=== PATIENT | female | born 1980 | race African-American/Black ===

== ENCOUNTER 2017-06-23 06:12 | Emergency (ER) | payer OTHER ==
[~2017-06-23] VITALS: Ht 154.9 cm; Wt 79.0 kg
[2017-06-23 07:45] VITALS: BP 130/80
== END 2017-06-23 07:48 | disposition home or self-care (01) ==
LOC: EMS 06:19
DX: J32.9 Chronic sinusitis, unspecified (principal); J02.9 Acute pharyngitis, unspecified; H92.02 Otalgia, left ear
CPT/HCPCS: 99283

== ENCOUNTER 2017-09-18 10:12 | Emergency (ER) | payer OTHER ==
[~2017-09-18] VITALS: Ht 154.9 cm; Wt 77.3 kg
[2017-09-18] MEDS ORDERED: METHOCARBAMOL 500 MG TABLET PO ONE (10:45)
[2017-09-18] MEDS ORDERED: KETOROLAC TROMETHAMINE 60 MG/2 ML VIAL IM ONE (10:45)
[2017-09-18 10:53] VITALS: BP 124/74
== END 2017-09-18 11:38 | disposition home or self-care (01) ==
LOC: EMS 10:13
DX: S39.012A Strain of muscle, fascia and tendon of lower back, initial encounter (principal); X58.XXXA Exposure to other specified factors, initial encounter; Y93.89 Activity, other specified; Y92.89 Other specified places as the place of occurrence of the external cause; Y99.8 Other external cause status
CPT/HCPCS: 96372; 99283; J1885

== ENCOUNTER 2018-04-16 08:39 | Day surgery (SDC) | payer OTHER ==
[~2018-04-16] VITALS: Ht 152.4 cm; Wt 78.2 kg
[~2018-04-16 08:39] MED LIST: FERR-89 PO
[2018-04-16 09:13] LABS: ANION GAP 8 mmol/L (8-16); CALCIUM, TOTAL 9.1 mg/dL (8.8-10.5); CARBON DIOXIDE 26 mmol/L (22-29); CHLORIDE 105 mmol/L (98-107); GLOMERULAR FILTR. RATE CALC > 60 mL/min (>60); GLUCOSE,RANDOM 103 mg/dL (70-110); POTASSIUM 3.6 mmol/L (3.5-5.1); SODIUM SERUM 139 mmol/L (136-145); UREA NITROGEN, BLOOD 14 mg/dL (7-18)
[2018-04-16] MEDS ORDERED: NITROGLYCERIN 400 MCG/SUBLINGUAL SPRAY 4.9 GM BOTTLE SL ONE ×2 (09:19→10:43)
[2018-04-16] MEDS ORDERED: METOPROLOL TARTRATE 5 MG/5 ML VIAL ONE (09:19)
[2018-04-16] MEDS ORDERED: METOPROLOL TARTRATE 50 MG TABLET ONE (09:40)
[2018-04-16] MEDS ORDERED: IOVERSOL 350 MG/ML 150 ML VIAL ONE (10:33)
[2018-04-16] MEDS ORDERED: METOPROLOL TARTRATE 5 MG/5 ML VIAL IVP ONE (10:43)
[2018-04-16] MEDS ORDERED: IOVERSOL 350 MG/ML 100 ML VIAL ONE (10:51)
[2018-04-16] MEDS ORDERED: METOPROLOL TARTRATE 50 MG TABLET PO PRN (11:00)
[2018-04-16] MEDS ORDERED: 0.9% SODIUM CHLORIDE 10 ML SYRINGE IVP PRN (11:00)
== END 2018-04-16 11:43 | disposition home or self-care (01) ==
LOC: SURGERY 08:39 → EDSTATUS 10:30 → SURGERY 11:43
PROVIDERS: ATTEND Internal Medicine Cardiovascular Disease
DX: I25.89 Other forms of chronic ischemic heart disease (principal); I11.9 Hypertensive heart disease without heart failure; I20.8 Other forms of angina pectoris; I34.0 Nonrheumatic mitral (valve) insufficiency; I27.20 Pulmonary hypertension, unspecified; E55.9 Vitamin D deficiency, unspecified; Z72.89 Other problems related to lifestyle; Z98.890 Other specified postprocedural states; Z79.899 Other long term (current) drug therapy
CPT/HCPCS: 36415; 75574; 80048; 84703; 93005; J3490; Q9967 ×2

== ENCOUNTER 2024-03-19 11:35 | Emergency (ER) | payer OTHER ==
[~2024-03-19] VITALS: Ht 154.9 cm; Wt 81.8 kg
[~2024-03-19 11:35] MED LIST changes: -FERR-89 PO; +FERR325T27 PO
[2024-03-19 11:36] VITALS: BP 130/84; PULSE 92; RESP 18; TEMP 98.3
[2024-03-19 12:15] LABS: COVID AG,FIA SOURCE NASAL SWAB
[2024-03-19 12:41] LABS: SARS-COV2 (COVID) ANTIGEN,FIA Negative (Negative)
[2024-03-19 12:42] LABS: INFLUENZA TYPE A NEGATIVE FOR TYPE A (NEGATIVE); INFLUENZA TYPE B NEGATIVE FOR TYPE B (NEGATIVE)
[2024-03-19] MEDS ORDERED: AMOX500C2 PO (13:22)
[2024-03-19] MEDS: OXYMETAZOLINE HCL 0.05% 15 ML NASAL SPRAY NASAL ONE (13:25)
== END 2024-03-19 13:35 | disposition home or self-care (01) ==
LOC: EMS 11:36
DX: J32.9 Chronic sinusitis, unspecified (principal); Z98.890 Other specified postprocedural states; Z20.822 Contact with and (suspected) exposure to COVID-19
CPT/HCPCS: 87804; 99283